=== PATIENT | female | born 1960 | race American Indian/Alaskan Native ===

== ENCOUNTER 2017-05-27 20:06 | Emergency (ER) | payer MEDICAID ==
--- NOTE | 2017-05-27 20:36 | C.PDOC ---
History Of Present Illness Patient gave a history of Coughing and feeling SOB for 3 weeks. States the breathing medication has not been helping. Cough is occa. produictive of sputum. Noted to be having paroxysmal cough. She denies any fever. Patient has been seeing PMD and last visit was last .-last week. Time Seen by Provider: 05/27/17 20:36 Chief Complaint (Nursing): Cough, Cold, Congestion History Per: Patient History/Exam Limitations: no limitations Onset/Duration Of Symptoms: Days Current Symptoms Are (Timing): Still Present Location Of Pain: None Sick Contacts (Context): None Associated Symptoms: Cough. denies: Fever, Chills, Vomiting, Diarrhea Severity: Moderate Pain Scale Rating Of: 1 Recent travel outside of the [place]: No Additional History Per: Patient Past Medical History Vital Signs: Last Vital Signs Temp 97.9 F 05/27/17 22:31 Pulse 96 H 05/27/17 22:31 Resp 20 05/27/17 22:31 BP 127/83 05/27/17 22:31 Pulse Ox 100 05/27/17 22:31 - Medical History PMH: Diabetes, HTN, Sexually Transmitted Disease (Herpes) Denies: Hepatitis, HIV, Seizures Surgical History: No Surg Hx Family History: States: Unknown Family Hx - Social History Hx Tobacco Use: Yes Hx Alcohol Use: No Hx Substance Use: No - Immunization History Hx Tetanus Toxoid Vaccination: Yes Hx Influenza Vaccination: Yes Hx Pneumococcal Vaccination: Yes Review Of Systems Constitutional: Negative for: Fever, Chills, Sweats, Weakness Eyes: Negative for: Pain Cardiovascular: Negative for: Chest Pain, Palpitations, Orthopnea Respiratory: Positive for: Cough, Shortness of Breath, Sputum Gastrointestinal: Negative for: Nausea, Vomiting, Abdominal Pain, Diarrhea Genitourinary: Negative for: Dysuria Musculoskeletal: Negative for: Neck Pain, Shoulder Pain, Arm Pain Skin: Negative for: Rash Neurological: Negative for: Weakness Psych: Negative for: Anxiety Physical Exam - Physical Exam Appears: Well, No Acute Distress Skin: Normal Color, Warm, Dry Head: Atraumatic Nose: Normal Oral Mucosa: Moist Throat: Normal Neck: Normal Chest: Symmetrical, No Deformity, No Tenderness, No Ecchymosis, No Subcutaneous Emphysema Cardiovascular: Rhythm Regular, No Edema Respiratory: Decreased Breath Sounds, No Accessory Muscle Use, Rhonchi Gastrointestinal/Abdominal: Normal Exam Back: Normal Inspection Extremity: Normal ROM, No Tenderness, No Pedal Edema ED Course And Treatment - Laboratory Results Result Diagrams: 05/27/17 21:00 05/27/17 21:00 ECG: Interpreted By Me, Viewed By Me ECG Rhythm: Sinus Rhythm ECG Interpretation: No Acute Changes, Abnormal Interpretation Of ECG: NSR, LAD, prolonged QT interval, no acute chnages Rate From EC O2 Sat by Pulse Oximetry: 97 Pulse Ox Interpretation: Normal - Radiology CXR: Interpreted by Me, Viewed By Me CXR Interpretation: Yes: No Acute Disease, Other (normal chest film). No: Infiltrates Progress Note: On reevaluation, patient reports she feels better and is no longer feeling SOB, patient feels comfortable going home. Disposition Counseled Patient/Family Regarding: Diagnosis - Disposition Referrals: Dylan Ahumada MD [Staff Provider] - Disposition: HOME/ ROUTINE Disposition Time: 22:04 Condition: IMPROVED Instructions: Asthma (DC), Upper Respiratory Infection (ED), How to Use a Nebulizer (ED) Forms: [facility] (Malawian) - POA Present On Arrival: None - Clinical Impression Clinical Impression: Upper respiratory infection, Bronchospasm
[2017-05-27] MEDS ORDERED: Albuterol-Ipratrop 3 mg / 0.5 (3 ml) UD INH STA (20:42)
[2017-05-27] MEDS ORDERED: Albuterol-Ipratrop 3 mg / 0.5 (3 ml) UD ONE (20:47)
[2017-05-27 21:04] LABS: BASO # 0.1 K/uL (0.0-0.2); BASO % 0.9 % (0.0-2.0); EOS # 0.2 K/uL (0.0-0.7); EOS % 1.7 % (0.0-4.0); HEMATOCRIT 31.4 % (34.0-47.0); LYMPH # 1.7 K/uL (1.0-4.3); LYMPH % 17.9 % (20.0-40.0); MEAN CELL VOLUME 81.3 fL (81.0-99.0); MEAN CORPUSCULAR HEMOGLOBIN 26.1 pg (27.0-31.0); MEAN CORPUSCULAR HGB CONC 32.1 g/dL (33.0-37.0); MEAN PLATELET VOLUME 9.5 fL (7.2-11.7); MONO # 0.9 K/uL (0.0-0.8); MONO % 9.7 % (0.0-10.0); RED CELL DISTRIBUTION WIDTH 14.1 % (11.5-14.5); WHITE BLOOD COUNT 9.3 K/uL (4.8-10.8)
[2017-05-27 21:15] LABS: PARTIAL THROMBOPLASTIN TIME 29 SECONDS (21-34)
[2017-05-27 21:31] LABS: ALB/GLOB RATIO 1.3 (1.0-2.1); BILIRUBIN,TOTAL 0.7 mg/dL (0.2-1.3); CALCIUM 8.5 mg/dl (8.6-10.4); TOTAL PROTEIN 6.8 g/dL (6.3-8.3)
[2017-05-27 21:33] LABS: POTASSIUM 4.8 mmol/L (3.6-5.2)
[2017-05-27 22:34] VITALS: BP 127/83; PULSE 96; RESP 20; TEMP 97.9
[2017-05-27 22:50] VITALS: O2SAT 97
--- NOTE | 2017-05-28 09:02 | RAD ---
HISTORY: SOB COMPARISON: No prior. TECHNIQUE: Chest PA and lateral FINDINGS: LUNGS: Mild pulmonary vascular congestion is noted. PLEURA: No significant pleural effusion identified. No pneumothorax apparent. CARDIOVASCULAR: The cardiac silhouette is upper normal in size. OSSEOUS STRUCTURES: No significant abnormalities. VISUALIZED UPPER ABDOMEN: Normal. OTHER FINDINGS: None. IMPRESSION: Mild pulmonary vascular congestion.
== END 2017-05-27 23:05 | disposition home or self-care (01) ==
LOC: C.ER 20:06
DX: J06.9 Acute upper respiratory infection, unspecified (principal); J98.01 Acute bronchospasm; Z72.0 Tobacco use

== ENCOUNTER 2017-07-26 16:50 | Observation (INO) | payer MEDICAID ==
--- NOTE | 2017-07-26 17:24 | C.PDOC ---
History Of Present Illness 56F c/o left side anterior chest pain intermittent since yesterday, lasting up to 2 min at a time. worse while she was cleaning her house. assoc sob but she says she has had a productive cough for 3 weeks now. no fever. Time Seen by Provider: 07/26/17 17:23 Chief Complaint (Nursing): Chest Pain Past Medical History Vital Signs: Last Vital Signs Temp 98.6 F 07/26/17 16:59 Pulse 96 H 07/26/17 16:59 Resp 20 07/26/17 16:59 BP 126/74 07/26/17 16:59 Pulse Ox 100 07/26/17 17:24 - Medical History PMH: Anemia, Diabetes, HTN, Hypercholesterolemia, Sexually Transmitted Disease ( Herpes) Denies: Hepatitis, HIV, Seizures Family History: States: Other Other Family History: nc - Social History Hx Tobacco Use: Yes Hx Alcohol Use: No Hx Substance Use: No - Immunization History Hx Tetanus Toxoid Vaccination: Yes Hx Influenza Vaccination: Yes (03/2017) Hx Pneumococcal Vaccination: No Review Of Systems Except As Marked, All Systems Reviewed And Found Negative. Constitutional: Negative for: Fever, Chills Cardiovascular: Positive for: Chest Pain, Edema. Negative for: Palpitations Respiratory: Positive for: Cough, Shortness of Breath, Wheezing. Negative for: Hemoptysis Gastrointestinal: Negative for: Nausea, Vomiting, Abdominal Pain Neurological: Negative for: Weakness, Numbness, Headache Physical Exam - Physical Exam Appears: Well, Non-toxic, No Acute Distress Skin: Warm, Dry Head: Atraumatic Nose: No Epistaxis Oral Mucosa: Moist Lips: No Swelling Neck: Supple Cardiovascular: Rhythm Regular Respiratory: No Decreased Breath Sounds, No Accessory Muscle Use, No Rales, No Rhonchi, No Stridor, No Wheezing Gastrointestinal/Abdominal: Soft, No Tenderness, No Distention Extremity: No Swelling Neurological/Psych: Oriented x3, Other (no focal deficits) ED Course And Treatment O2 Sat by Pulse Oximetry: 100 Medical Decision Making Medical Decision Making: ecg- nsr 80, lad, no acute ischemia Disposition - Disposition Forms: [employer] (Uzbek)
[2017-07-26] MEDS ORDERED: Albuterol-Ipratrop 3 mg / 0.5 (3 ml) UD IH STA (17:34)
[2017-07-26] MEDS ORDERED: Albuterol-Ipratrop 3 mg / 0.5 (3 ml) UD ONE ×2 (17:56→20:38)
[2017-07-26 18:26] LABS: BASO % 0.4 % (0.0-2.0); EOS % 0.1 % (0.0-4.0); LYMPH # 0.8 K/uL (1.0-4.3); LYMPH % 8.4 % (20.0-40.0); MEAN CORPUSCULAR HEMOGLOBIN 26.2 pg (27.0-31.0); MEAN CORPUSCULAR HGB CONC 31.9 g/dL (33.0-37.0); MEAN PLATELET VOLUME 9.2 fL (7.2-11.7); MONO # 0.3 K/uL (0.0-0.8); MONO % 3.4 % (0.0-10.0); NEUT # 8.6 K/uL (1.8-7.0); NEUT % 87.7 % (50.0-75.0); PLATELET COUNT 168 K/uL (130-400); RBC 3.81 Mil/uL (3.80-5.20); RED CELL DISTRIBUTION WIDTH 14.8 % (11.5-14.5); WHITE BLOOD COUNT 9.8 K/uL (4.8-10.8)
[2017-07-26 18:39] LABS: ALB/GLOB RATIO 1.2 (1.0-2.1); ALBUMIN 3.8 g/dL (3.5-5.0); CALCIUM 8.9 mg/dl (8.6-10.4)
[2017-07-26 18:51] LABS: TROPONIN I 0.021 ng/mL (0.00-0.120)
[2017-07-26 18:58] LABS: LYMPHOCYTE 8 % (20-40); NEUTROPHIL 92 % (50-75); TOTAL CELLS COUNTED 100
[2017-07-26 18:59] LABS: ANISOCYTOSIS SLIGHT; HYPOCHROMIC SLIGHT; PLATELET ESTIMATE NORMAL (NORMAL); POIKILOCYTOSIS SLIGHT
[2017-07-26 19:00] LABS: LARGE PLATELETS PRESENT; OVALOCYTES SLIGHT
[2017-07-26] MEDS: Divalproex 500 mg DR Tab PO SCH ×2 (20:30→20:31)
[2017-07-26] MEDS ORDERED: Divalproex 500 mg DR Tab PO ONE (20:31)
[2017-07-26] MEDS: Albuterol-Ipratrop 3 mg / 0.5 (3 ml) UD INH SCH (20:43)
[2017-07-26] MEDS: (Novolin R) Insulin Human Regular 100 units/ml vial SC SCH (21:53)
[2017-07-26] MEDS ORDERED: (Novolog Mix 70/30) Insulin Aspart/Insulin Aspar 100 units/ml SC SCH (22:00)
--- NOTE | 2017-07-26 22:21 | CP.PCM.HP ---
History of Present Illness - History of Present Illness History of Present Illness: 56F c/o left side anterior chest pain intermittent since yesterday, lasting up to 2 min at a time. worse while she was cleaning her house. assoc sob but she says she has had a productive cough for 3 weeks now. no fever Past Patient History - Past Social History Smoking Status: Light Smoker < 10 Cigarettes Daily - CARDIAC Hx Hypercholesterolemia: Yes Hx Hypertension: Yes - PULMONARY Hx Tuberculosis: No - NEUROLOGICAL Hx Seizures: No - RENAL Other/Comment: Kidney problems - ENDOCRINE/METABOLIC Hx Diabetes Mellitus Type 2: Yes - HEMATOLOGICAL/ONCOLOGICAL Hx Anemia: Yes Hx Human Immunodeficiency Virus (HIV): No - GENITOURINARY/GYNECOLOGICAL Hx Sexually Transmitted Disorders: Yes () - PSYCHIATRIC Hx Substance Use: No - SURGICAL HISTORY Hx Thyroidectomy: Yes (1990) - ANESTHESIA Hx Anesthesia: Yes Hx Anesthesia Reactions: No Meds Allergies/Adverse Reactions: Allergies Allergy/AdvReac Type Severity Reaction Status Date / Time No Known Allergies Allergy Verified 07/26/17 17:21 Results - Vital Signs Recent Vital Signs: Last Vital Signs Temp 98.5 F 07/26/17 21:40 Pulse 105 H 07/26/17 21:40 Resp 20 07/26/17 21:40 BP 153/68 H 07/26/17 21:40 Pulse Ox 98 07/26/17 21:40 - Labs Result Diagrams: 07/26/17 18:22 07/26/17 18:22 Labs: Laboratory Results - last 24 hr 07/26/17 07/26/17 07/26/17 18:22 18:22 21:50 WBC 9.8 RBC 3.81 Hgb 10.0 L Hct 31.2 L MCV 82.0 MCH 26.2 L MCHC 31.9 L RDW 14.8 H Plt Count 168 MPV 9.2 Neut % (Auto) 87.7 H Lymph % (Auto) 8.4 L [place] % (Auto) 3.4 Eos % (Auto) 0.1 Baso % (Auto) 0.4 Neut # 8.6 H Lymph # 0.8 L [place] # 0.3 Eos # 0.0 Baso # 0.0 Neutrophils % (Manual) 92 H Lymphocytes % (Manual) 8 L Monocytes % (Manual) TEST NOT PERFORMED Platelet Estimate Normal Large Platelets Present Hypochromasia (manual) Slight Poikilocytosis (manual Slight Anisocytosis (manual) Slight Ovalocytes Slight Sodium 137 Potassium 4.5 Chloride 103 Carbon Dioxide 27 Anion Gap 12 BUN 32 H Creatinine 2.0 H Est GFR ( Amer) 31 Est GFR (Non-Af Amer) 26 POC Glucose (mg/dL) 262 H Random Glucose 176 H Calcium 8.9 Total Bilirubin 0.3 AST 21 ALT 34 Alkaline Phosphatase 84 Troponin I 0.0210 NT-Pro-B Natriuret Pep 189 Total Protein 6.9 Albumin 3.8 Globulin 3.2 Albumin/Globulin Ratio 1.2
[2017-07-26] MEDS: Rosuvastatin Calcium 2.5 mg Tab PO SCH (22:56)
[2017-07-27] MEDS: Albuterol-Ipratrop 3 mg / 0.5 (3 ml) UD INH SCH ×4 (01:02→20:01)
[2017-07-27 01:33] LABS: CK-MB 3.08 ng/mL (0.0-3.38)
[2017-07-27 06:30] LABS: CK-MB 2.75 ng/mL (0.0-3.38); TROPONIN I 0.028 ng/mL (0.00-0.120)
[2017-07-27] MEDS ORDERED: (Novolog Mix 70/30) Insulin Aspart/Insulin Aspar 100 units/ml SC SCH ×3 (07:30→19:03)
[2017-07-27] MEDS ORDERED: INSULIN LISPRO PROTAMIN SQ SCH (07:30)
[2017-07-27] MEDS ORDERED: LISPRO SQ SCH (07:30)
[2017-07-27] MEDS: (Novolin R) Insulin Human Regular 100 units/ml vial SC SCH ×4 (07:52→21:32)
[2017-07-27 09:13] LABS: BASO % 0.4 % (0.0-2.0); EOS # 0.1 K/uL (0.0-0.7); EOS % 0.9 % (0.0-4.0); HEMOGLOBIN 9.4 g/dL (11.0-16.0); LYMPH # 2.4 K/uL (1.0-4.3); LYMPH % 26.4 % (20.0-40.0); MEAN CELL VOLUME 83.3 fL (81.0-99.0); MEAN CORPUSCULAR HEMOGLOBIN 26.9 pg (27.0-31.0); MEAN CORPUSCULAR HGB CONC 32.2 g/dL (33.0-37.0); MEAN PLATELET VOLUME 9.7 fL (7.2-11.7); MONO # 0.7 K/uL (0.0-0.8); MONO % 7.8 % (0.0-10.0); NEUT # 5.7 K/uL (1.8-7.0); NEUT % 64.5 % (50.0-75.0); NRBC % 0.3 % (0.0-2.0); RBC 3.49 Mil/uL (3.80-5.20); RED CELL DISTRIBUTION WIDTH 14.7 % (11.5-14.5); WHITE BLOOD COUNT 8.9 K/uL (4.8-10.8)
--- NOTE | 2017-07-27 09:13 | RAD ---
HISTORY: cp COMPARISON: 05/27/2017 TECHNIQUE: Chest PA and lateral FINDINGS: LUNGS: No active pulmonary disease. PLEURA: No significant pleural effusion identified. No pneumothorax apparent. CARDIOVASCULAR: Normal. OSSEOUS STRUCTURES: No significant abnormalities. VISUALIZED UPPER ABDOMEN: Normal. OTHER FINDINGS: None. IMPRESSION: No active disease.
[2017-07-27] MEDS: Divalproex 500 mg DR Tab PO SCH ×2 (10:00→17:13)
[2017-07-27] MEDS: Pantoprazole 40 mg EC Tab PO SCH (10:00)
[2017-07-27] MEDS: Sodium Chloride 0.9% 1,000 ML IV SCH ×2 (10:01→21:30)
[2017-07-27 10:29] LABS: TROPONIN I 0.023 ng/mL (0.00-0.120)
[2017-07-27 10:55] LABS: ALB/GLOB RATIO 1.2 (1.0-2.1); ALBUMIN 3.5 g/dL (3.5-5.0)
[2017-07-27] MEDS: Acetylcysteine 20% 3 ML NEB PO SCH (19:00)
[2017-07-27] MEDS: Rosuvastatin Calcium 2.5 mg Tab PO SCH (21:30)
--- NOTE | 2017-07-27 23:13 | CP.PCM.PN ---
Subjective - Date & Time of Evaluation Date of Evaluation: 07/27/17 Time of Evaluation: 19:00 - Subjective Subjective: Pt seen and examined Objective - Vital Signs/Intake and Output Vital Signs (last 24 hours): Temp Pulse Resp BP Pulse Ox 98.0 F 82 20 126/73 95 07/27/17 15:33 07/27/17 16:54 07/27/17 15:33 07/27/17 15:33 07/27/17 15:33 Intake and Output: 07/27/17 07/28/17 18:59 06:59 Intake Total 1400 Balance 1400 - Medications Medications: Current Medications Acetylcysteine (Acetylcysteine 20%) 3 ml PO BID [facility] Albuterol/Ipratropium (Duoneb 3 Mg/0.5 Mg (3 Ml) Ud) 3 ml INH RQ6 [facility] Last Admin: 07/27/17 20:01 Dose: 3 ml Aspirin (Aspirin Chewable) 81 mg PO DAILY [facility] Last Admin: 07/27/17 10:00 Dose: 81 mg Divalproex Sodium (Depakote Dr) 500 mg PO BID [facility] Last Admin: 07/27/17 17:13 Dose: 500 mg Fenofibrate (Tricor) 145 mg PO HS [facility] Last Admin: 07/27/17 21:30 Dose: 145 mg Ferrous Sulfate (Feosol) 325 mg PO BID [facility] Last Admin: 07/27/17 17:13 Dose: 325 mg Heparin Sodium (Porcine) (Heparin) 5,000 units SC Q8 [facility] Last Admin: 07/27/17 14:22 Dose: 5,000 units Sodium Chloride (Sodium Chloride 0.9%) 1,000 mls @ 75 mls/hr IV .[id number] [facility] Last Admin: 07/27/17 21:30 Dose: Not Given Insulin Aspart (Novolog Mix 70/30 (70/30 Units/Ml)) 20 units SC ACB [facility] Insulin Aspart (Novolog Mix 70/30 (70/30 Units/Ml)) 20 units SC HS [facility] Insulin Human Regular (Novolin R) 0 unit SC ACHS [facility] PRN Reason: Protocol Last Admin: 07/27/17 21:32 Dose: Not Given Losartan Potassium (Cozaar) 25 mg PO DAILY [facility] Last Admin: 07/27/17 10:00 Dose: 25 mg Nicotine (Nicoderm Cq) 1 patch TD DAILY [facility] Last Admin: 07/27/17 14:22 Dose: 1 patch Olanzapine (Zyprexa) 15 mg PO HS [facility] Last Admin: 07/27/17 21:31 Dose: 15 mg Pantoprazole Sodium (Protonix Ec Tab) 40 mg PO DAILY [facility] Last Admin: 07/27/17 10:00 Dose: 40 mg Rosuvastatin Calcium (Crestor) 2.5 mg PO [facility] Last Admin: 07/27/17 21:30 Dose: 2.5 mg Trazodone HCl (Desyrel) 150 mg PO [facility] Last Admin: 07/27/17 21:30 Dose: 150 mg - Labs Labs: 07/27/17 09:05 07/27/17 01:05
[2017-07-28] MEDS: Albuterol-Ipratrop 3 mg / 0.5 (3 ml) UD INH SCH ×3 (02:01→20:43)
[2017-07-28] MEDS: (Novolin R) Insulin Human Regular 100 units/ml vial SC SCH ×5 (07:01→22:03)
--- NOTE | 2017-07-28 09:29 | CON ---
DATE: CARDIOLOGY CONSULTATION REASON FOR CONSULTATION: Chest pain. HISTORY OF PRESENT ILLNESS: The patient is a 56-year-old morbidly obese -French female, who has a history of hypertension, diabetes mellitus, former alcohol abuser, underwent rehab and a current smoker. The patient has got chest tightness and shortness of breath. The patient is unaware of any prior cardiac history and is unaware of any history of cardiac catheterization or coronary intervention. SOCIAL HISTORY: The patient is a smoker. She is a former EtOH abuser, underwent recovery. MEDICATIONS: Aspirin 81 mg once a day, Cozaar 25 mg once a day, Crestor 2.5 mg once a day, Depakote 500 mg twice a day, Desyrel 150 mg at bedtime, Feosol 325 mg twice a day, subcutaneous heparin 5000 units q. 8 hours, Nicoderm patch, Tricor 145 mg once a day, Zyprexa 15 mg at bedtime. REVIEW OF SYSTEMS: No nausea or vomiting. No fever or chills. No suicidal ideations. PHYSICAL EXAMINATION: GENERAL: The patient is a moderately obese -French female, who does not appear to be in any acute distress. VITAL SIGNS: Blood pressure 125/77, heart rate 79, temperature 97.9, respirations 20. HEENT: Lateral deviation of the left eye. NECK: No JVD. CHEST: Clear. HEART: S1 and S2 regular and distant. ABDOMEN: Soft. EXTREMITIES: Trace leg edema. LABORATORY DATA: Hemoglobin and hematocrit 9.4 and 29.1, white count and platelet count are within normal limits. SMA-7 is within normal limits except for glucose of 145, BUN and creatinine of 33 and 2.0. Two sets of troponin 0.023 and 0.028. Chest x-ray revealed mild cardiomegaly. EKG revealed sinus rhythm and noted. ASSESSMENT: 1. Chest pain. Rule out myocardial infarction. 2. Congestive heart failure. 3. Chronic renal insufficiency. RECOMMENDATIONS: Given the high suspicion of coronary artery disease in view of typical nature of chest discomfort associated with diaphoresis, cardiac catheterization is considered. The procedure and it's risks fully explained to the patient including the risk of worsening renal insufficiency. The patient is scheduled for tomorrow and will be premedicated with half normal saline as well as Mucomyst at 600 mg orally twice a day. The patient will be kept n.p.o. after midnight. Puneet Gray MD
[2017-07-28] MEDS: Divalproex 500 mg DR Tab PO SCH ×2 (10:14→17:16)
[2017-07-28] MEDS: Pantoprazole 40 mg EC Tab PO SCH (10:15)
[2017-07-28] MEDS: Acetylcysteine 20% 3 ML NEB PO SCH ×2 (10:19→23:53)
[2017-07-28 11:01] LABS: INR 1.1; PROTHROMBIN TIME 12.1 SECONDS (9.7-12.2)
[2017-07-28 11:45] LABS: BASO # 0.1 K/uL (0.0-0.2); BASO % 0.8 % (0.0-2.0); EOS # 0.2 K/uL (0.0-0.7); EOS % 2.6 % (0.0-4.0); HEMOGLOBIN 9.9 g/dL (11.0-16.0); LYMPH # 1.7 K/uL (1.0-4.3); MEAN CELL VOLUME 83.6 fL (81.0-99.0); MEAN CORPUSCULAR HEMOGLOBIN 26.6 pg (27.0-31.0); MEAN CORPUSCULAR HGB CONC 31.8 g/dL (33.0-37.0); MEAN PLATELET VOLUME 9.4 fL (7.2-11.7); MONO # 0.7 K/uL (0.0-0.8); MONO % 9.3 % (0.0-10.0); NEUT # 4.8 K/uL (1.8-7.0); NEUT % 64.3 % (50.0-75.0); RBC 3.73 Mil/uL (3.80-5.20); RED CELL DISTRIBUTION WIDTH 14.7 % (11.5-14.5); WHITE BLOOD COUNT 7.4 K/uL (4.8-10.8)
[2017-07-28 12:15] LABS: ALB/GLOB RATIO 1.1 (1.0-2.1); ALBUMIN 3.2 g/dL (3.5-5.0)
[2017-07-28] MEDS ORDERED: Sodium Chloride 0.9% 500 ML IV SCH (14:15)
[2017-07-28] MEDS: Rosuvastatin Calcium 2.5 mg Tab PO SCH (21:52)
--- NOTE | 2017-07-28 23:31 | CP.PCM.PN ---
Subjective - Date & Time of Evaluation Date of Evaluation: 07/28/17 Time of Evaluation: 19:45 - Subjective Subjective: Pt seen and examined by me today Objective - Vital Signs/Intake and Output Vital Signs (last 24 hours): Temp Pulse Resp BP Pulse Ox 98.8 F 73 18 143/72 97 07/28/17 23:14 07/28/17 23:14 07/28/17 23:14 07/28/17 23:14 07/28/17 23:14 Intake and Output: 07/28/17 07/29/17 18:59 06:59 Intake Total 80 820 Balance 80 820 - Medications Medications: Current Medications Acetylcysteine (Acetylcysteine 20%) 3 ml PO BID [facility] Last Admin: 07/28/17 10:19 Dose: 3 ml Albuterol/Ipratropium (Duoneb 3 Mg/0.5 Mg (3 Ml) Ud) 3 ml INH RQ6 [facility] Last Admin: 07/28/17 20:43 Dose: Not Given Aspirin (Aspirin Chewable) 81 mg PO DAILY [facility] Last Admin: 07/28/17 10:14 Dose: Not Given Divalproex Sodium (Depakote Dr) 500 mg PO BID [facility] Last Admin: 07/28/17 17:16 Dose: 500 mg Fenofibrate (Tricor) 145 mg PO HS [facility] Last Admin: 07/28/17 21:52 Dose: 145 mg Ferrous Sulfate (Feosol) 325 mg PO BID [facility] Last Admin: 07/28/17 17:16 Dose: 325 mg Heparin Sodium (Porcine) (Heparin) 5,000 units SC Q8 [facility] Last Admin: 07/27/17 14:22 Dose: 5,000 units Sodium Chloride (Sodium Chloride 0.9%) 500 mls @ 40 mls/hr IV .[id number] [facility] Last Admin: 07/28/17 17:18 Dose: 40 mls/hr Insulin Aspart (Novolog Mix 70/30 (70/30 Units/Ml)) 20 units SC ACB [facility] Insulin Aspart (Novolog Mix 70/30 (70/30 Units/Ml)) 20 units SC HS [facility] Insulin Human Regular (Novolin R) 0 unit SC ACHS [facility] PRN Reason: Protocol Last Admin: 07/28/17 22:03 Dose: Not Given Losartan Potassium (Cozaar) 25 mg PO DAILY [facility] Last Admin: 07/28/17 10:18 Dose: 25 mg Nicotine (Nicoderm Cq) 1 patch TD DAILY [facility] Last Admin: 07/28/17 10:19 Dose: 1 patch Olanzapine (Zyprexa) 15 mg PO HS [facility] Last Admin: 07/28/17 21:52 Dose: 15 mg Pantoprazole Sodium (Protonix Ec Tab) 40 mg PO DAILY [facility] Last Admin: 07/28/17 10:15 Dose: Not Given Rosuvastatin Calcium (Crestor) 2.5 mg PO HS [facility] Last Admin: 07/28/17 21:52 Dose: 2.5 mg Trazodone HCl (Desyrel) 150 mg PO HS [facility] Last Admin: 07/28/17 21:52 Dose: 150 mg - Labs Labs: 07/28/17 11:26 07/28/17 11:26 PT 12.1 SECONDS (9.7-12.2) 07/28/17 10:43 INR 1.1 07/28/17 10:43 APTT 30 SECONDS (21-34) 07/28/17 10:43
--- NOTE | 2017-07-29 00:53 | CARDCATH ---
PROCEDURE DATE: INDICATIONS: The patient is a 56-year-old obese -[place] female who has a history of hypertension, diabetes mellitus, presented because of chest pain associated with diaphoresis. Cardiac enzymes were in the indeterminate range. Cardiac catheterization was recommended. The procedure and its risks were explained to the patient who understood and agreed for the procedure. PROCEDURE: Left and right coronary angiography was performed with 6-Romanian JL4 and JR4 diagnostic catheters. The patient was premedicated with Mucomyst because of underlying renal insufficiency. A minimum amount of dye was used. ANGIOGRAPHIC FINDINGS: Selective injection of the left coronary artery revealed the left main to be a normal vessel. Left main bifurcated into medium-sized LAD and medium-sized dominant circumflex artery. The entire left coronary circulation was angiographically unremarkable. Selective injection of the right coronary artery revealed medium-sized codominant vessel that was angiographically unremarkable. CONCLUSIONS: Unremarkable coronary circulation. RECOMMENDATIONS: Optimize medical management. Continue aspirin. Possibility of small vessel disease cannot be completely ruled out, especially in a diabetic obese patient. Patient will be started on IV hydration and will be maintained on Mucomyst. A followup BMP will be obtained in a.m. Puneet Gray MD
[2017-07-29] MEDS: Albuterol-Ipratrop 3 mg / 0.5 (3 ml) UD INH SCH ×3 (04:26→13:23)
--- NOTE | 2017-07-29 05:59 | CARD ---
APPROVED REPORT EXAM: Two-dimensional and M-mode echocardiogram with Doppler and color Doppler. Other Information Quality : GoodRhythm : INDICATION Dyspnea Chest Pain SMOKER RISK FACTORS Hypertension Hyperlipidemia Diabetes 2D DIMENSIONS IVSd1.1 (0.7-1.1cm)LVDd5.4 (3.9-5.9cm) PWd1.3 (0.7-1.1cm)LVDs4.0 (2.5-4.0cm) FS (%) 26.1 %LVEF (%)50.7 (>50%) M-Mode DIMENSIONS RVDd1.66 (2.1-3.2cm)Left Atrium (MM)3.73 (2.5-4.0cm) IVSd0.97 (0.7-1.1cm)Aortic Root2.63 (2.2-3.7cm) LVDd5.28 (4.0-5.6cm)Aortic Cusp Exc.1.67 (1.5-2.0cm) PWd1.04 (0.7-1.1cm)FS (%) 24 % LVDs4.03 (2.0-3.8cm)LVEF (%)47 (>50%) Mitral Valve MV E Zbkzzzzh278.3cm/sMV A Swtwamvt417.2cm/sE/A ratio0.9 TDI E/Lateral E'0.0E/Medial E'0.0 Tricuspid Valve TR Peak [id number]/sTR Peak Gr.[id number] LEFT VENTRICLE The left ventricle is normal size. There is borderline concentric left ventricular hypertrophy. Left ventricle systolic function is normal. The Ejection Fraction is 50-55%. There is normal LV segmental wall motion. RIGHT VENTRICLE The right ventricle is normal size. There is normal right ventricular wall thickness. The right ventricular systolic function is normal. ATRIA The left atrium size is normal. The right atrium size is normal. The interatrial septum is intact with no evidence for an atrial septal defect. AORTIC VALVE The aortic valve is normal in structure. No aortic regurgitation is present. There is no aortic valvular stenosis. There is no aortic valvular vegetation. MITRAL VALVE The mitral valve is normal in structure. There is no evidence of mitral valve prolapse. There is no mitral valve stenosis. Mitral regurgitation is mild. TRICUSPID VALVE The tricuspid valve is normal in structure. There is mild tricuspid regurgitation. Right ventricular systolic pressure is estimated at 30 mmHg. There is no pulmonary hypertension. PULMONIC VALVE The pulmonic valve is not well visualized. There is no pulmonic valvular regurgitation. GREAT VESSELS The aortic root is normal in size. PERICARDIAL EFFUSION There is no significant pericardial effusion. <Conclusion> Left ventricle systolic function is normal. The Ejection Fraction is 50-55%. Hypertensive heart disease. No aortic regurgitation is present. Mitral regurgitation is mild. There is mild tricuspid regurgitation. There is no pulmonary hypertension. There is no pulmonic valvular regurgitation.
[2017-07-29 08:09] LABS: BASO % 0.5 % (0.0-2.0); EOS # 0.2 K/uL (0.0-0.7); EOS % 2.3 % (0.0-4.0); HEMOGLOBIN 10.3 g/dL (11.0-16.0); LYMPH # 2.1 K/uL (1.0-4.3); LYMPH % 24.5 % (20.0-40.0); MEAN CELL VOLUME 82.8 fL (81.0-99.0); MEAN CORPUSCULAR HEMOGLOBIN 26.9 pg (27.0-31.0); MEAN CORPUSCULAR HGB CONC 32.5 g/dL (33.0-37.0); MEAN PLATELET VOLUME 9.2 fL (7.2-11.7); MONO # 0.7 K/uL (0.0-0.8); MONO % 8.6 % (0.0-10.0); NEUT # 5.5 K/uL (1.8-7.0); NEUT % 64.1 % (50.0-75.0); RBC 3.82 Mil/uL (3.80-5.20); RED CELL DISTRIBUTION WIDTH 14.9 % (11.5-14.5); WHITE BLOOD COUNT 8.6 K/uL (4.8-10.8)
[2017-07-29 08:26] LABS: CALCIUM 9.5 mg/dl (8.6-10.4)
[2017-07-29] MEDS: (Novolin R) Insulin Human Regular 100 units/ml vial SC SCH ×3 (08:49→17:12)
[2017-07-29 08:51] VITALS: BP 145/81; RESP 20
[2017-07-29] MEDS: Divalproex 500 mg DR Tab PO SCH ×2 (09:12→17:12)
[2017-07-29] MEDS: Pantoprazole 40 mg EC Tab PO SCH (09:13)
[2017-07-29] MEDS: Acetylcysteine 20% 3 ML NEB PO SCH (10:57)
--- NOTE | 2017-07-29 12:54 | PCM.PSYCH ---
Initial Psychiatric Evaluation - Initial Psychiatric Evaluation Type of Admission: Voluntary Legal Status: Capacity Chief Complaint (in patient's own words): "I am feeling okay." History of Present Illness and Precipitating Events: Psych Consult: Suicidal Ideation The pt is seen, chart reviewed, case discussed with staff. Patient is a 56 year old females who lives on her own. Patient states she was admitted to the hospital due to chest pain. She suffers from schizoaffective disorder bipolar type. Her condition is managed by her own psychiatrist with whom she has regular follow up. She states that it is controlled with her normal medications and denies any symptoms. She denies any hallucinations, paranoia, delusions, S/I, H/i. Medications discussed with patient and will be continued during her admission her. Patient smokes and is requesting the patch. Denies alcohol, drugs. PMH: [place] Past Psych history: Schizoaffective disorder- bipolar type Current Medications: Active Medications Generic Name Dose Route Start Last Admin Trade Name Freq PRN Reason Stop Dose Admin Acetylcysteine 3 ml 07/27/17 18:00 07/29/17 10:57 Acetylcysteine 20% PO 3 ml BID BRIAN Administration Albuterol/Ipratropium 3 ml 07/26/17 20:00 07/29/17 07:14 Duoneb 3 Mg/0.5 Mg (3 Ml) Ud INH Not Given RQ6 BRIAN Aspirin 81 mg 07/27/17 10:00 07/29/17 09:13 Aspirin Chewable PO 81 mg DAILY BRIAN Administration Divalproex Sodium 500 mg 07/26/17 19:45 07/29/17 09:[address] PO 500 mg BID BRIAN Administration Fenofibrate 145 mg 07/26/17 22:00 07/28/17 21:52 Tricor PO 145 mg HS BRIAN Administration Ferrous Sulfate 325 mg 07/27/17 10:00 07/29/17 09:13 Feosol PO 325 mg BID BRIAN Administration Heparin Sodium (Porcine) 5,000 units 07/26/17 22:00 07/27/17 14:22 Heparin SC 5,000 units Q8 BRIAN Administration Sodium Chloride 500 mls @ 40 mls/hr 07/28/17 14:15 07/28/17 17:18 Sodium Chloride 0.9% IV 40 mls/hr .[id number] BRIAN Administration Insulin Aspart 20 units 07/27/17 19:03 Novolog Mix 70/30 (70/30 Units/Ml) SC ACB BRIAN Insulin Aspart 20 units 07/27/17 19:03 Novolog Mix 70/30 (70/30 Units/Ml) SC HS BRIAN Insulin Human Regular 0 unit 07/26/17 22:00 07/29/17 08:49 Novolin R SC 1 unit ACHS BRIAN Administration Protocol Losartan Potassium 25 mg 07/27/17 10:00 07/29/17 09:12 Cozaar PO 25 mg DAILY BRIAN Administration Nicotine 1 patch 07/27/17 14:00 07/29/17 09:12 Nicoderm Cq TD 1 patch DAILY BRIAN Administration Olanzapine 15 mg 07/26/17 22:00 07/28/17 21:52 Zyprexa PO 15 mg HS BRIAN Administration Pantoprazole Sodium 40 mg 07/27/17 10:00 07/29/17 09:13 Protonix Ec Tab PO 40 mg DAILY BRIAN Administration Rosuvastatin Calcium 2.5 mg 07/26/17 22:00 07/28/17 21:52 Crestor PO 2.5 mg HS BRIAN Administration Trazodone HCl 150 mg 07/26/17 22:00 07/28/17 21:52 Desyrel PO 150 mg HS BRIAN Administration Past Psychiatric History - Past Psychiatric History Previous Treatment History: Inpatient Pertinent Medical Hx (Current Medical&Sleep Prob, Allergies): Allergies Allergy/AdvReac Type Severity Reaction Status Date / Time No Known Allergies Allergy Verified 07/26/17 17:21 Divalproex [Depakote DR(*BID*)] 500 mg PO BID 05/27/17 Fenofibrate,Micronized [Fenofibrate] 134 mg PO HS 05/27/17 Ferrous Sulfate [Feosol] 325 mg PO BID 05/27/17 Insulin Lispro Protamin/Lispro [Humalog Mix 75-25 Kwikpen] 50 unit SQ HS Insulin Lispro Protamin/Lispro [Humalog Mix 75-25 Kwikpen] 60 unit SQ ACB Iron Ps Cmplx/Vit B12/FA [Ferrex 150 Forte 25 Mcg-1 mg-150 mg] 1 cap PO DAILY Linagliptin [Tradjenta] 5 mg PO DAILY 05/27/17 Losartan Potassium 25 mg PO DAILY 05/27/17 Olanzapine [Olanzapine Odt] 15 mg PO HS 05/27/17 Omeprazole 40 mg PO DAILY 05/27/17 Pravastatin Sodium [Pravachol] 20 mg PO HS 05/27/17 Trazodone HCl 150 mg PO HS 05/27/17 Review of Systems - Review of Systems All systems: reviewed and no additional remarkable complaints except - Psychiatric Psychiatric: Anxiety, Difficulty Concentrating. absent: Auditory Hallucinations , Depression, Homicidal Ideation, Suicidal Ideation, Visual Hallucinations Mental Status Examination - Personal Presentation Personal Presentation: Looks stated age - Affect Affect: Constricted - Motor Activity Motor Activity: Calm - Reliability in Providing Information Reliability in Providing Information: Fair - Speech Speech: Tangential - Mood Mood: Anxious - Formal Thought Process Formal Thought Process: Circumstantial - Obsessions/Compulsions Obsessions: No Compulsions: No - Cognitive Functions Orientation: Person, Place, Situation, Time Sensorium: Alert Attention/Concentration: Attentive Abstract Thinking: [place] Estimate of Intelligence: Below average Judgement: Intact, as evidence by: Good judgement, Intact, as evidence by: Insight regarding need for hospitalization - Risk Risk: Diminished functioning - Limitations Limitations: Living alone DSM 5 DX - DSM 5 DSM 5 Diagnosis: Schizoaffective disorder bipolar type - Recommended/Plan of Treatment Treatment Recommendations and Plan of Treatment: Olanzipine 15mg PO at night Depakote 500mg PO twice daily Individual therapy Psychoeducation and support Encourage compliance with meds and after care Refer to outpatient program Teach healthy lifestyle methods, i.e. diet, exercise, meditation Smoking cessation - Smoking Cessation Smoking Cessation Initiated: No
[2017-07-29] MEDS ORDERED: Pneumococcal 23-Valent Vaccine IM ONE (16:40)
--- NOTE | 2017-07-29 16:45 | CP.PCM.PN ---
Subjective - Date & Time of Evaluation Date of Evaluation: 07/29/17 Time of Evaluation: 16:41 - Subjective Subjective: PT SEEN AND CLEARED BY DR. MARINA FOR PSYCH. RECS APPRECIATED. DR MILLER ALSO CLEARED THE PT FOR D.C. OK PER DR. GUERRERO TO D/C. PT HAS ALL MEDS BUT NEEDS REFILL FOR ALBUTEROL INHALER; RX FOR ASA 81 MG PO QD GIVEN. PT IS HAPPY TO GO HOME AND VERBALIZES UNDERSTANDING OF D/C PLAN, F/U AND MEDS. NO FURTHER ORDERS. Objective - Vital Signs/Intake and Output Vital Signs (last 24 hours): Temp Pulse Resp BP Pulse Ox 97.6 F 77 20 145/81 96 07/29/17 07:25 07/29/17 12:00 07/29/17 07:25 07/29/17 07:25 07/29/17 07:25 Intake and Output: 07/29/17 07/29/17 06:59 18:59 Intake Total 820 560 Balance 820 560 - Medications Medications: Current Medications Acetylcysteine (Acetylcysteine 20%) 3 ml PO BID [facility] Last Admin: 07/29/17 10:57 Dose: 3 ml Albuterol/Ipratropium (Duoneb 3 Mg/0.5 Mg (3 Ml) Ud) 3 ml INH RQ6 [facility] Last Admin: 07/29/17 13:23 Dose: Not Given Aspirin (Aspirin Chewable) 81 mg PO DAILY [facility] Last Admin: 07/29/17 09:13 Dose: 81 mg Divalproex Sodium (Depakote Dr) 500 mg PO BID [facility] Last Admin: 07/29/17 09:12 Dose: 500 mg Fenofibrate (Tricor) 145 mg PO HS [facility] Last Admin: 07/28/17 21:52 Dose: 145 mg Ferrous Sulfate (Feosol) 325 mg PO BID [facility] Last Admin: 07/29/17 09:13 Dose: 325 mg Heparin Sodium (Porcine) (Heparin) 5,000 units SC Q8 [facility] Last Admin: 07/27/17 14:22 Dose: 5,000 units Sodium Chloride (Sodium Chloride 0.9%) 500 mls @ 40 mls/hr IV .[id number] [facility] Last Admin: 07/28/17 17:18 Dose: 40 mls/hr Insulin Aspart (Novolog Mix 70/30 (70/30 Units/Ml)) 20 units SC ACB BRIAN Insulin Aspart (Novolog Mix 70/30 (70/30 Units/Ml)) 20 units SC HS [facility] Insulin Human Regular (Novolin R) 0 unit SC ACHS [facility] PRN Reason: Protocol Last Admin: 07/29/17 12:53 Dose: 3 unit Losartan Potassium (Cozaar) 25 mg PO DAILY [facility] Last Admin: 07/29/17 09:12 Dose: 25 mg Nicotine (Nicoderm Cq) 1 patch TD DAILY [facility] Last Admin: 07/29/17 09:12 Dose: 1 patch Olanzapine (Zyprexa) 15 mg PO HS [facility] Last Admin: 07/28/17 21:52 Dose: 15 mg Pantoprazole Sodium (Protonix Ec Tab) 40 mg PO DAILY [facility] Last Admin: 07/29/17 09:13 Dose: 40 mg Pneumococcal Polyvalent Vaccine (Pneumovax 23 Vaccine) 0.5 ml IM .ONCE ONE Stop: 07/29/17 16:41 Rosuvastatin Calcium (Crestor) 2.5 mg PO [facility] Last Admin: 07/28/17 21:52 Dose: 2.5 mg Trazodone HCl (Desyrel) 150 mg PO HS [facility] Last Admin: 07/28/17 21:52 Dose: 150 mg - Labs Labs: 07/29/17 07:58 07/29/17 07:58 PT 12.1 SECONDS (9.7-12.2) 07/28/17 10:43 INR 1.1 07/28/17 10:43 APTT 30 SECONDS (21-34) 07/28/17 10:43
[2017-07-29 18:07] VITALS: PULSE 76; TEMP 98.4; O2SAT 95
--- NOTE | 2017-07-29 19:05 | PN ---
DATE: SUBJECTIVE: The patient is in one-to-one watch because of suicidal ideation and she denied any chest pain and no reported groin bleeding. PHYSICAL EXAMINATION: VITAL SIGNS: Blood pressure 145/81, heart rate 73, temperature 97.6, and respirations 20. HEENT: Pale conjunctivae. CHEST: Clear. HEART: S1 and S2, regular. EXTREMITIES: No edema. LABORATORY DATA: Today's BUN and creatinine are 26 and 2.0 compared to 25 and 2.0 yesterday. Glucose 176. Rest of SMA-7 is within normal limit. Official echocardiography study report stated ejection fraction in the range of 50% to 55%. ASSESSMENT: 1. Atypical chest pain, unremarkable coronary circulation. 2. Obesity. 3. Depression and suicidal ideations. 4. Uncontrolled diabetes mellitus. 5. Hypertension. RECOMMENDATIONS: Continue aspirin 81 mg once a day, Cozaar 25 mg once a day, Crestor 2.5 mg once a day, and nicotine patch. Continue NovoLog insulin and fenofibrate, remove femoral dressing. Puneet Gray MD
--- NOTE | 2017-07-30 08:25 | CP.PCM.DIS ---
Provider - Provider Date of Admission: 07/26/17 18:52 Attending physician: Dylan Ahumada MD Time Spent in preparation of Discharge (in minutes): 45 Hospital Course - Lab Results Lab Results: Most Recent Lab Values WBC 8.6 K/uL (4.8-10.8) 07/29/17 07:58 RBC 3.82 Mil/uL (3.80-5.20) 07/29/17 07:58 Hgb 10.3 g/dL (11.0-16.0) L 07/29/17 07:58 Hct 31.6 % (34.0-47.0) L 07/29/17 07:58 MCV 82.8 fL (81.0-99.0) 07/29/17 07:58 MCH 26.9 pg (27.0-31.0) L 07/29/17 07:58 MCHC 32.5 g/dL (33.0-37.0) L 07/29/17 07:58 RDW 14.9 % (11.5-14.5) H 07/29/17 07:58 Plt Count 169 K/uL (130-400) 07/29/17 07:58 MPV 9.2 fL (7.2-11.7) 07/29/17 07:58 Neut % (Auto) 64.1 % (50.0-75.0) 07/29/17 07:58 Lymph % (Auto) 24.5 % (20.0-40.0) 07/29/17 07:58 Giles % (Auto) 8.6 % (0.0-10.0) 07/29/17 07:58 Eos % (Auto) 2.3 % (0.0-4.0) 07/29/17 07:58 Baso % (Auto) 0.5 % (0.0-2.0) 07/29/17 07:58 Neut # 5.5 K/uL (1.8-7.0) 07/29/17 07:58 Lymph # 2.1 K/uL (1.0-4.3) 07/29/17 07:58 Giles # 0.7 K/uL (0.0-0.8) 07/29/17 07:58 Eos # 0.2 K/uL (0.0-0.7) 07/29/17 07:58 Baso # 0.0 K/uL (0.0-0.2) 07/29/17 07:58 Neutrophils % (Manual) 92 % (50-75) H 07/26/17 18:22 Lymphocytes % (Manual) 8 % (20-40) L 07/26/17 18:22 Monocytes % (Manual) TEST NOT PERFORMED 07/26/17 18:22 Platelet Estimate Normal (NORMAL) 07/26/17 18:22 Large Platelets Present 07/26/17 18:22 Hypochromasia (manual) Slight 07/26/17 18:22 Poikilocytosis (manual Slight 07/26/17 18:22 Anisocytosis (manual) Slight 07/26/17 18:22 Ovalocytes Slight 07/26/17 18:22 PT 12.1 SECONDS (9.7-12.2) 07/28/17 10:43 INR 1.1 07/28/17 10:43 APTT 30 SECONDS (21-34) 07/28/17 10:43 Sodium 140 mmol/L (132-148) 07/29/17 07:58 Potassium 4.8 mmol/L (3.6-5.2) 07/29/17 07:58 Chloride 107 mmol/L (98-107) 07/29/17 07:58 Carbon Dioxide 29 mmol/L (22-30) 07/29/17 07:58 Anion Gap 10 (10-20) 07/29/17 07:58 BUN 26 mg/dL (7-17) H 07/29/17 07:58 Creatinine 2.0 mg/dL (0.7-1.2) H 07/29/17 07:58 Est GFR ( Amer) 31 07/29/17 07:58 Est GFR (Non-Af Amer) 26 07/29/17 07:58 POC Glucose (mg/dL) 240 mg/dL (65-110) H 07/29/17 16:10 Random Glucose 176 mg/dL (65-105) H 07/29/17 07:58 Calcium 9.5 mg/dl (8.6-10.4) 07/29/17 07:58 Total Bilirubin 0.3 mg/dL (0.2-1.3) 07/28/17 11:26 AST 19 U/L (14-36) 07/28/17 11:26 ALT 29 U/L (9-52) 07/28/17 11:26 Alkaline Phosphatase 69 U/L (38-126) 07/28/17 11:26 Total Creatine Kinase 84 U/L (30-135) 07/27/17 05:54 CK-MB (Mass) 2.75 ng/mL (0.0-3.38) 07/27/17 05:54 Troponin I 0.0280 ng/mL (0.00-0.120) 07/27/17 05:54 NT-Pro-B Natriuret Pep 189 pg/mL (0-900) 07/26/17 18:22 Total Protein 6.1 g/dL (6.3-8.3) L 07/28/17 11:26 Albumin 3.2 g/dL (3.5-5.0) L 07/28/17 11:26 Globulin 2.9 gm/dL (2.2-3.9) 07/28/17 11:26 Albumin/Globulin Ratio 1.1 (1.0-2.1) 07/28/17 11:26 - Hospital Course Hospital Course: Pt is for discharge today, cardiac cath was benign, pt was seen by psychiatrist PT SEEN AND CLEARED BY DR. MARINA FOR PSYCH. RECS APPRECIATED. DR GRAY ALSO CLEARED THE . PT HAS ALL MEDS BUT NEEDS REFILL FOR ALBUTEROL INHALER; RX FOR ASA 81 MG PO QD GIVEN. PT IS HAPPY TO GO HOME AND VERBALIZES UNDERSTANDING OF D/C PLAN, F/U AND MEDS. NO FURTHER ORDERS. Discharge Exam - Head Exam Head Exam: ATRAUMATIC, NORMAL INSPECTION, NORMOCEPHALIC - Eye Exam Eye Exam: EOMI, Normal appearance, PERRL Pupil Exam: NORMAL ACCOMODATION, PERRL - ENT Exam ENT Exam: Mucous Membranes Moist - Cardiovascular Exam Cardiovascular Exam: REGULAR RHYTHM, +S1, +S2 - GI/Abdominal Exam GI & Abdominal Exam: Normal Bowel Sounds - Rectal Exam Rectal Exam: Deferred Discharge Plan - Discharge Medications Prescriptions: Aspirin [Aspirin Chewable] 81 mg PO DAILY #30 chew Albuterol Sulfate [Proair Hfa] 1 puff IH QID PRN #1 inh PRN Reason: Wheezing - Follow Up Plan Condition: GOOD Disposition: HOME/ ROUTINE Instructions: Albuterol (By breathing), Heart Healthy Diet (DC), Depression (DC ), Upper Respiratory Infection (DC), Bronchospasm (DC) Additional Instructions: -FOLLOW UP WITH DR. AHUMADA IN THE OFFICE WITHIN 1 WEEK OF DISCHARGE---CALL THE OFFICE FOR APPOINTMENT TIME. -CONTINUE HOME MEDICATIONS USUAL. TAKE A BABY ASPIRIN ONCE A DAY FOR YOUR HEART. -IF YOU DO NOT HAVE A PSYCHIATRIST, YOU MAY MAKE AN APPOINTMENT WITH THE [facility] OUT[facility] OFFICE AT [address] [place] [address]; PHONE NUMBER IS [phone]. -IF YOU HAVE ANY FURTHER QUESTIONS, CONTACT DR. AHUMADA'S OFFICE. Referrals: Puneet Gray MD [Staff Provider] - Hien Cai MD [Staff Provider] - Dylan Ahumada MD [Staff Provider] -
== END 2017-07-29 19:02 | disposition home or self-care (01) ==
LOC: C.ER 16:50 → C.9E 18:52 → C.5S 21:50
PROVIDERS: ADMIT Internal Medicine; ATTEND Internal Medicine
DX: R07.89 Other chest pain (principal); I13.0 Hypertensive heart and chronic kidney disease with heart failure and stage 1 through stage 4 chronic kidney disease, or unspecified chronic kidney disease; I50.9 Heart failure, unspecified; N18.9 Chronic kidney disease, unspecified; E66.01 Morbid (severe) obesity due to excess calories; E11.65 Type 2 diabetes mellitus with hyperglycemia; R61 Generalized hyperhidrosis; F25.0 Schizoaffective disorder, bipolar type; F17.200 Nicotine dependence, unspecified, uncomplicated; E11.22 Type 2 diabetes mellitus with diabetic chronic kidney disease; Z79.4 Long term (current) use of insulin; Z23 Encounter for immunization
CPT/HCPCS: 36415; 71046; 80048; 80053; 82948; 83880; 84484; 85025; 85610; 85730; 90471; 90732; 93306; 93458; 94640; 96372; 99285; C1766; C1769; C1887; G0378; J1644; J7040

== ENCOUNTER 2018-08-20 23:40 | Emergency (ER) | payer MEDICAID ==
[2018-08-20 23:56] VITALS: O2SAT 97
--- NOTE | 2018-08-20 23:56 | C.PDOC ---
History Of Present Illness 57 year old female with PMHx of insulin dependent DM presents to the ED c/o intermittent abdominal pain for the past 2 days. Patient states her pain is dull, crampy 4/10. Patient denies fever, chills, nausea, vomit, diarrhea, back pain, dysuria, hematuria. Time Seen by Provider: 08/20/18 23:56 Chief Complaint (Nursing): Abdominal Pain History Per: Patient History/Exam Limitations: no limitations Onset/Duration Of Symptoms: Days (2), Intermittent Episodes Current Symptoms Are (Timing): Still Present Location Of Pain/Discomfort: Diffuse Quality Of Discomfort: Dull, Cramping Associated Symptoms: denies: Nausea, Vomiting, Diarrhea, Urinary Symptoms Recent travel outside of the [place]: No Additional History Per: Patient Abnormal Vaginal Bleeding: No Past Medical History Reviewed: Historical Data, Nursing Documentation, Vital Signs - Medical History PMH: Anemia, Diabetes, HTN, Hypercholesterolemia, Sexually Transmitted Disease (Herpes) Denies: Hepatitis, HIV, Chronic Kidney Disease, Seizures Surgical History: No Surg Hx Family History: States: Unknown Family Hx - Social History Hx Tobacco Use: Yes Hx Alcohol Use: No Hx Substance Use: No - Immunization History Hx Tetanus Toxoid Vaccination: Yes Hx Influenza Vaccination: Yes (03/2017) Hx Pneumococcal Vaccination: No Review Of Systems Constitutional: Negative for: Fever, Chills Cardiovascular: Negative for: Chest Pain, Palpitations Respiratory: Negative for: Shortness of Breath Gastrointestinal: Positive for: Abdominal Pain. Negative for: Nausea, Vomiting, Diarrhea Genitourinary: Negative for: Dysuria, Hematuria Musculoskeletal: Negative for: Back Pain Neurological: Negative for: Weakness, Numbness, Headache Physical Exam - Physical Exam Appears: Non-toxic, No Acute Distress Skin: Warm, Dry Head: Normacephalic Eye(s): bilateral: Normal Inspection Oral Mucosa: Moist Neck: Supple Chest: Symmetrical Cardiovascular: Rhythm Regular Respiratory: No Rales, No Rhonchi, No Wheezing Gastrointestinal/Abdominal: Soft, No Tenderness, No Guarding, No Rebound Back: No CVA Tenderness Extremity: Bilateral: Atraumatic, Normal Color And Temperature, Normal ROM Neurological/Psych: Oriented x3, Normal Speech, Normal Cognition Gait: Steady ED Course And Treatment - Laboratory Results Result Diagrams: 08/21/18 01:03 08/21/18 01:03 ECG: Interpreted By Me, Viewed By Me ECG Rhythm: Sinus Rhythm (94), Nonspecific Changes O2 Sat by Pulse Oximetry: 97 (On RA) Pulse Ox Interpretation: Normal - CT Scan/US CT abd/pelvis Other Rad Studies (CT/US): Read By Radiologist, Radiology Report Reviewed CT/US Interpretation: CT SCAN OF THE ABDOMEN AND PELVIS WITH CONTRAST. CLINICAL HISTORY: Abdominal pain. TECHNIQUE: Multiple axial and coronal CT images were obtained through the abdomen and pelvis after administration of intravenous contrast material. COMMENTS: Mild amount of fecal residue in the large bowel. Colonic diverticulosis. Acute cecal/proximal ascending colon diverticulitis without perforation or abscess formation. Subsegmental atelectatic pulmonary changes in the left lower lobe. Moderate cardiomegaly. Fat containing umbilical hernia without incarceration. Bilateral simple renal cysts are noted. The liver is enlarged with decreased attenuation without mass or defect. There is no intra or extrahepatic biliary ductal dilatation. The spleen is normal. The gallbladder is within normal limits. The pancreas is of normal contour and attenuation characteristics. There is no evidence of adrenal mass. Both kidneys demonstrate prompt and equal nephrograms. The kidneys are normal in size, shape and configuration. There is no evidence of renal or ureteral mass. No renal or ureteral calculi are identified. There is no hydroureter or hydronephrosis. No evidence for appendicitis. There is no bowel wall thickening. No evidence for small or large bowel obstruction. There is no evidence of abdominal ascites or lymphadenopathy. There is no evidence of intrinsic or extrinsic bladder mass. There is no pelvic ascites or lymphadenopathy. Images of the lung bases show no evidence of pleural or parenchymal mass. There are no pleural effusions. The bony structures are free of lytic or blastic lesions. IMPRESSION: Mild amount of fecal residue in the large bowel. Colonic diverticulosis. Acute cecal/proximal ascending colon diverticulitis without perforation or abscess formation. Subsegmental atelectatic pulmonary changes in the left lower lobe. Moderate cardiomegaly. Fat containing umbilical hernia without incarceration. Bilateral simple renal cysts are noted. Thank you for your kind referral of this patient. . Electronically signed on Aug 21, 2018 3:17:38 AM EST by: Michelle West M.D., Certified by ABR, MSK, Neuroradiology Progress Note: Plan: - CT abd/pelvis. - EKG. - Labs. - Protonix 40 mg IVP. - IV fluids. - UA Reevaluation Time: 05:40 Reassessment Condition: Improved Disposition Counseled Patient/Family Regarding: Studies Performed, Diagnosis, Need For F ollowup, Rx Given - Disposition Referrals: Dylan Ahumada MD [Staff Provider] - Disposition: HOME/ ROUTINE Disposition Time: 23:56 Condition: FAIR Additional Instructions: Please return if symptoms recur Prescriptions: Polyethylene Glycol 3350 [Miralax] 17 gm PO DAILY #270 ml Instructions: Constipation, Adult (DC), Acute Abdomen (Belly Pain), Adult (DC) Forms: [employer] (French) - Clinical Impression Clinical Impression: Abdominal pain, Constipation - Scribe Statement The provider has reviewed the documentation as recorded by the Scribe Bj Raymundo All medical record entries made by the Scribe were at my direction and personally dictated by me. I have reviewed the chart and agree that the record accurately reflects my personal performance of the history, physical exam, medical decision making, and the department course for this patient. I have also personally directed, reviewed, and agree with the discharge instructions and disposition.
[2018-08-21] MEDS ORDERED: Sodium Chloride 0.9% 1,000 ML IV ONE ×2 (00:22→02:20)
[2018-08-21 01:14] LABS: INR 1.1; PROTHROMBIN TIME 12.5 SECONDS (9.7-12.2)
[2018-08-21 01:19] LABS: BASO % 0.5 % (0.0-2.0); EOS # 0.2 K/uL (0.0-0.7); EOS % 2.7 % (0.0-4.0); LYMPH # 1.9 K/uL (1.0-4.3); LYMPH % 20.8 % (20.0-40.0); MEAN CELL VOLUME 85.6 fL (81.0-99.0); MEAN CORPUSCULAR HEMOGLOBIN 26.7 pg (27.0-31.0); MEAN CORPUSCULAR HGB CONC 31.2 g/dL (33.0-37.0); MEAN PLATELET VOLUME 8.8 fL (7.2-11.7); MONO % 10.5 % (0.0-10.0); NEUT % 65.5 % (50.0-75.0); RBC 3.73 Mil/uL (3.80-5.20); RED CELL DISTRIBUTION WIDTH 13.9 % (11.5-14.5); WHITE BLOOD COUNT 9.2 K/uL (4.8-10.8)
[2018-08-21 01:25] LABS: ALB/GLOB RATIO 1.1 (1.0-2.1); ALBUMIN 3.8 g/dL (3.5-5.0); CALCIUM 8.9 mg/dl (8.6-10.4)
[2018-08-21 01:32] LABS: SQUAMOUS EPITHIAL < 1 /hpf (0-5); URINE BILIRUBIN NEGATIVE (NEGATIVE); URINE BLOOD NEGATIVE (NEGATIVE); URINE CLARITY Clear (Clear); URINE COLOR Yellow (YELLOW); URINE GLUCOSE (UA) NORMAL (Normal); URINE LEUKOCYTE ESTERASE TRACE Leu/uL (Negative); URINE PROTEIN NEGATIVE (NEGATIVE); URINE UROBILINOGEN NORMAL mg/dL (0.2-1.0)
[2018-08-21] MEDS ORDERED: Iodixanol 320 MG/ML 100 ML BOTTLE IV ONE (01:58)
[2018-08-21 06:41] VITALS: BP 137/89; PULSE 88; RESP 20; TEMP 98.4
--- NOTE | 2018-08-21 14:49 | CT ---
Date of service: 08/21/2018 PROCEDURE: CT Abdomen and Pelvis with contrast HISTORY: abd pain COMPARISON: None. TECHNIQUE: Contrast dose: 100 mL of Visipaque 320 intravenously. Axial and reformatted coronal and sagittal CT images of the abdomen and pelvis were obtained after IV contrast administration. Radiation dose: Total exam DLP = 988.62 mGy-cm. This CT exam was performed using one or more of the following dose reduction techniques: Automated exposure control, adjustment of the mA and/or kV according to patient size, and/or use of iterative reconstruction technique. FINDINGS: LOWER THORAX: There is linear shape opacity at the left lower lung may represent atelectasis or scar tissue. The possibility of pneumonia is less likely. No evidence of pleural effusion or pericardial effusion. LIVER: No evidence of acute pathology in the liver. GALLBLADDER AND BILE DUCTS: Gallbladder is contracted. No evidence of biliary ductal dilatation. PANCREAS: Unremarkable. No gross lesion or ductal dilatation. SPLEEN: Unremarkable. ADRENALS: Unremarkable. No mass. KIDNEYS AND URETERS: Low-attenuation cystic lesions in both kidneys VASCULATURE: Unremarkable. No aortic aneurysm. Foci of atherosclerotic calcification in the abdominal aorta and iliac arteries are noted. BOWEL: There are inflammatory changes adjacent to the cecum which may be due to diverticulitis or epiploic appendagitis. No evidence of discrete fluid collection or abscess formation. No evidence of high-grade bowel obstruction. Scattered colonic diverticulosis are also noted. APPENDIX: The appendix is not clearly visualized in this exam. PERITONEUM: Unremarkable. No free fluid. No free air. LYMPH NODES: Unremarkable. No enlarged lymph nodes. BLADDER: Unremarkable. REPRODUCTIVE: Unremarkable. BONES: No acute fracture. OTHER FINDINGS: There is a fat containing umbilical hernia seen. IMPRESSION: Inflammatory changes adjacent to the cecum may represent diverticulitis versus epiploic appendagitis. The possibility of appendicitis is less likely. The appendix is not clearly visualized. No evidence of abscess formation or free air. Linear opacity at the left lower lung may represent atelectasis or scar tissue. Additional findings as discussed above. Preliminary report contains concordant findings was submitted by [facility] [[email or web address]] Radiology.
== END 2018-08-21 06:40 | disposition home or self-care (01) ==
LOC: C.ER 23:40
DX: K59.00 Constipation, unspecified (principal); R10.9 Unspecified abdominal pain
CPT/HCPCS: 74177; 80053; 81001; 83690; 85025; 85610; 85730; 93005; 96361; 96374; 99283; C9113; J7030; Q9967